=== PATIENT | female | born 1995 | race Caucasian/White ===

== ENCOUNTER 2021-05-13 06:57 | Day surgery (SDC) | payer BC ==
[~2021-05-13 06:57] MED LIST: Sensorcaine 0.25% 10 ML ONE
[2021-05-13] MEDS ORDERED: CEFAZOLIN 2 GM-D5W BAG** 2 GM/50 ML ML IV SCH (07:00)
[2021-05-13] MEDS ORDERED: Lactated Ringers 1,000 ML IV SCH (07:00)
[2021-05-13] MEDS ORDERED: Lactated Ringers 1,000 ML IV ONE (07:12)
[2021-05-13] MEDS ORDERED: CEFAZOLIN 2 GM-D5W BAG** 2 GM/50 ML ML IV ONE (07:12)
[2021-05-13] MEDS ORDERED: DIPRIVAN 200 MG/20 ML IV ONE (12:17)
[2021-05-13] MEDS ORDERED: Zofran 4 MG/2 ML VIAL ONE (12:17)
[2021-05-13] MEDS ORDERED: Zemuron 100 MG/10 ML ONE (12:17)
[2021-05-13] MEDS ORDERED: Versed 2 MG/2 ML Injection ONE (12:17)
[2021-05-13] MEDS ORDERED: TORAdol 30 mg Injection ONE (12:17)
[2021-05-13] MEDS ORDERED: BRIDION 200MG/2ML IV ONE (12:17)
[2021-05-13] MEDS ORDERED: Xylocaine-Mpf 2% 5 Ml Vial ONE (12:17)
[2021-05-13] MEDS ORDERED: Decadron 4 MG INJ ONE (12:17)
[2021-05-13] MEDS ORDERED: SUBLIMAZE 100 MCG/2 ML ONE (12:17)
[2021-05-13] MEDS ORDERED: Ephedrine Sulfate 50 MG/ML ONE (13:21)
[2021-05-13 14:31] LABS: Appearance CLEAR (CLEAR); Bilirubin NEGATIVE (NEGATIVE); Blood NEGATIVE Ery/ul (0-5); Glucose NEGATIVE (NEGATIVE); Ketones NEGATIVE (NEGATIVE); Leukocyte Esterase NEGATIVE (NEGATIVE); Mucus SLIGHT /HPF (NEGATIVE); Nitrite NEGATIVE (NEGATIVE); Protein,Urine Dip NEGATIVE (Negative); Specific Gravity 1.025 (1.005-1.025); Urobilinogen NEGATIVE mg/dL (0-1)
[2021-05-13 14:52] VITALS: O2SAT 98
[2021-05-13 14:59] VITALS: BP 139/76; PULSE 83
--- NOTE | 2021-05-14 09:39 | OP ---
SURGERY DATE/TIME: 05/13/2021 1300 PREOPERATIVE DIAGNOSIS: Dyspareunia. POSTOPERATIVE DIAGNOSIS: Dyspareunia. PROCEDURE: Diagnostic laparoscopy. SURGEON: Burak Gomez D.O. STATISTICAL METHODS TEACHER: Amanda Yang surgical coordinator. ANESTHESIA: General. ESTIMATED BLOOD LOSS: Minimal. COMPLICATIONS: None. INDICATIONS: The risks, benefits, indications and alternatives of the procedure were reviewed with the patient prior to procedure. The patient understood the risk of infection, bleeding, bowel injury, bladder injury, ureteral injury, uterine perforation, pelvic infection and thromboembolic disorder associated with the surgery however desires to have this surgery as a possible need to alleviate her current medical condition. DESCRIPTION OF PROCEDURE AND FINDINGS: At this point the patient is taken to the operating room, given general sedation, placed in the supine position where she was prepped and draped in usual sterile fashion. From this point a 5 mm skin incision was made in the umbilical fold. The 5 mm trocar and sleeve were advanced under direct visualization where pneumoperitoneum was obtained with 4 liters of CO2 gas. An additional incision was made 2 cm above the symphysis pubis where a 5 mm trocar and sleeve were advanced direct visualization. A survey of the patient's pelvis and abdomen revealed completely entirely normal anatomy. The bilateral ovaries appeared to be within normal limits with no gross endometriotic lesions that were noted. The uterus appeared to be smooth and the bilateral fallopian tubes appeared to be within normal limits with no scarring that was noted in the pelvic region. The posterior cul-de-sac appeared to be within normal limits with no endometriotic implants that were visualized. The side blackburn appeared to be within normal limits with no gross abnormalities that were noted. There is no scarring in the abdominal region and at this point no visualization of the uterus was noted during the procedure. The uterus appeared to be mobile and there did not appear to be any cysts on bilateral ovaries. From this point all instruments were removed from the patient's abdominal region. The incisions were closed with 4-0 Monocryl suture with subsequent Dermabond on top. The patient was taken out of anesthesia and then taken to the recovery room in stable condition. All instruments and laps were accounted for x2.
== END 2021-05-13 15:10 | disposition home or self-care (01) ==
LOC: SDC 06:57
PROVIDERS: ATTEND Obstetrics & Gynecology
DX: N94.10 Unspecified dyspareunia (principal)
CPT/HCPCS: 81001; 84703; 87086; J0690; J1100; J1885; J2250; J2405; J2704; J3010

== ENCOUNTER 2023-02-21 23:36 | Emergency (ER) | payer BC ==
[2023-02-22] MEDS ORDERED: Hydromorphone 1 mg/ml Injection IM ONE (00:03)
[2023-02-22] MEDS ORDERED: Compazine 10 MG/2 ML IM ONE (00:11)
--- NOTE | 2023-02-22 00:11 | ERPHSYRPT ---
- History of Present Illness Time Seen by Provider: 02/21/23 23:58 Source: patient Exam Limitations: no limitations Patient Subjective Stated Complaint: Pt states "I have a messed up tooth and it hurts so bad" states that this right lower tooth has been hurting for "a long time" and the pain is constant ache and has been evaluated by DDS twice and is scheduled for a root canal on 02/24. Triage Nursing Assessment: Pt ambulated independently to room 6 with slow steady gait after standing on scale for weight acquisition. Resp even and unlabored, she is alert and oriented times three, and able to speak in complete sentences. She is crying and holding the right side of her face and rocking back and forth in the bed. Physician History: She has been seeing a dentist for dental problem, has been on abx and has some tylenol #3, claims that still not getting good enough pain control to sleep. Says a root canal is planned. Wants a pain shot tonight (Wednesday). Timing/Duration: gradual onset, weeks (2) Severity: moderate ENT Location: dental Prearrival Treatment: prescription meds Modifying Factors: Improves With: other Associated Symptoms: tooth pain Allergies/Adverse Reactions: No Known Drug Allergies Allergy (Verified 05/13/21 07:05) Home Medications: Escitalopram Oxalate [Lexapro] 1 tab PO DAILY 05/06/21 [History] Phentermine HCl 37.5 mg PO DAILY 02/21/23 [History] Hx Tetanus, Diphtheria Vaccination/Date Given: No Hx Influenza Vaccination/Date Given: Yes Hx Pneumococcal Vaccination/Date Given: No Immunizations Up to Date: No Travel Risk - International Travel Have you traveled outside of the country in past 3 weeks: No - Coronavirus Screening Are you exhibiting any of the following symptoms?: No Close contact with a COVID-19 positive Pt in past 14-21 Days: No - Vaccine Status Have you recieved a Covid-19 vaccination: Yes Dairy Cattle Farm Manager: [employer] - Vaccination Dates Date of 2cond Vaccination (if applicable): 2020 - Review of Systems Constitutional: No Symptoms Eyes: No Symptoms Ears, Nose, & Throat: No Symptoms Respiratory: No Symptoms Cardiac: No Symptoms Abdominal/Gastrointestinal: No Symptoms Genitourinary Symptoms: No Symptoms Musculoskeletal: No Symptoms Skin: No Symptoms Neurological: No Symptoms Psychological: No Symptoms Endocrine: No Symptoms Hematologic/Lymphatic: No Symptoms Immunological/Allergic: No Symptoms All Other Systems: Reviewed and Negative - Past Medical History Pertinent Past Medical History: Yes Neurological History: No Pertinent History ENT History: No Pertinent History Cardiac History: No Pertinent History Respiratory History: No Pertinent History Endocrine Medical History: No Pertinent History Musculoskeletal History: No Pertinent History, Other GI Medical History: No Pertinent History History: Other Psycho-Social History: Depression Female Reproductive Disorders: Endometriosis, Other Other Medical History: UTI, kidney stones PCOS - Past Surgical History Past Surgical History: Yes Neuro Surgical History: No Pertinent History Cardiac: No Pertinent History Respiratory: No Pertinent History Gastrointestinal: No Pertinent History Genitourinary: Kidney Surgery Musculoskeletal: No Pertinent History Female Surgical History: No Pertinent History Other Surgical History: right ankle screws and plate, TONSILS, - Social History Smoking Status: Current every day smoker Exposure to second hand smoke: No Drug Use: none Patient Lives Alone: Yes - Female History Hx Last Menstrual Period: unknown Hx Now: No - Nursing Vital Signs Nursing Vital Signs: Initial Vital Signs Temperature 97.2 F 02/21/23 23:43 Pulse Rate 86 02/21/23 23:43 Respiratory Rate 18 02/21/23 23:43 Blood Pressure 149/114 02/21/23 23:43 O2 Sat by Pulse Oximetry 98 02/21/23 23:43 Pain Scale Pain Intensity 10 - Physical Exam General Appearance: moderate distress, alert Eye Exam: bilateral eye: normal inspection, PERRL Nasal Exam: normal inspection Throat Exam: normal, pharynx normal, dental tenderness (right lower premolar with decay and pain, no abscess) Neck Exam: normal inspection, non-tender Cardiovascular/Respiratory Exam: chest non-tender, normal breath sounds, regular rate/rhythm Abdominal Exam: non-tender Neurologic Exam: alert, oriented x 3, cooperative Skin Exam: normal color, warm SpO2: 98 - Course Nursing assessment & vital signs reviewed: Yes Ordered Tests: Medication Summary Discontinued Medications Generic Name Dose Route Start Last Admin Trade Name Freq PRN Reason Stop Dose Admin Hydromorphone HCl 1 mg 02/22/23 00:03 02/22/23 00:16 Hydromorphone 1 Mg/1ml Inj 1 Mg/Ml Syringe IM 02/22/23 00:04 1 mg STAT ONE Administration Hydromorphone HCl Confirm 02/22/23 00:12 Hydromorphone 1 Mg/1ml Inj 1 Mg/Ml Syringe Administered 02/22/23 00:13 Dose 1 mg .ROUTE .STK-MED ONE Prochlorperazine Edisylate 10 mg 02/22/23 00:11 02/22/23 00:16 Prochlorperazine Edisylate 10 Mg/2 Ml Vial IM 02/22/23 00:12 10 mg STAT ONE Administration Prochlorperazine Edisylate Confirm 02/22/23 00:12 Prochlorperazine Edisylate 10 Mg/2 Ml Vial Administered 02/22/23 00:13 Dose 10 mg .ROUTE .STK-MED ONE - Progress Progress: improved, pain not gone completely Progress Note: 02/22/23 00:29 Gave a pain shot. Advised see dentist tomorrow (Wednesday) for recheck. Counseled pt/family regarding: diagnosis, need for follow-up Medical Desision Making - Independent Historian Additional History obtained from: Mother - Discussion of managment Agreed on:: Treatment plan, need for follow-up - Departure Departure Disposition: Home Clinical Impression: Pain due to dental caries Condition: Stable Critical Care Time: No Referrals: SANA GALVIN NP [Primary Care Provider] - Follow up/PCP as directed Instructions: Dental Pain (DC) Additional Instructions: See your dentist for follow-up.
[2023-02-22] MEDS ORDERED: Hydromorphone 1 mg/ml Injection ONE (00:12)
[2023-02-22] MEDS ORDERED: Compazine 10 MG/2 ML ONE (00:12)
[2023-02-22 00:39] VITALS: BP 137/96; PULSE 63; O2SAT 96
== END 2023-02-22 00:56 | disposition home or self-care (01) ==
LOC: ED 23:36
DX: K02.9 Dental caries, unspecified (principal); K08.89 Other specified disorders of teeth and supporting structures; Z79.899 Other long term (current) drug therapy; Z72.0 Tobacco use
CPT/HCPCS: 96372; 99283; J1170

== ENCOUNTER 2024-04-12 08:49 | Emergency (ER) | payer BC ==
--- NOTE | 2024-04-12 08:53 | ERPHSYRPT ---
- History of Present Illness Time Seen by Provider: 04/12/24 08:53 Source: patient Exam Limitations: no limitations Physician History: This is a 28-year-old white female patient of nurse practitioner Caryn who presents on her own to the emergency department after she was driving to work this morning when she started noticing a little dizziness followed by vomiting and diarrhea episode. She has right upper quadrant and right lower quadrant abdominal pain. Patient started her last menstrual period yesterday. Patient denies chest pain. Patient denies shortness of breath. Patient was driving her vehicle when this occurred and therefore she pulled over and waited for the episode to subside. She stated that this happened in the distant past 1 other time. She never sought medical care for it. Patient takes no medications chronically and she has no known drug allergies. Patient has not had an abdominal surgery in the past. Timing/Duration: today Severity: mild Modifying Factors: Improves With: nothing Associated Symptoms: nausea, vomiting, abdominal pain, No shortness of breath, No chest pain, No syncope Allergies/Adverse Reactions: No Known Drug Allergies Allergy (Verified 04/12/24 08:56) Hx Tetanus, Diphtheria Vaccination/Date Given: No Hx Influenza Vaccination/Date Given: Yes Hx Pneumococcal Vaccination/Date Given: No Travel Risk - International Travel Have you traveled outside of the country in past 3 weeks: No - Emerging Infectious Disease Are you exhibiting symptoms associated with any current EIDs: No - Review of Systems Constitutional: No Symptoms Eyes: No Symptoms Ears, Nose, & Throat: No Symptoms Respiratory: No Symptoms Cardiac: No Symptoms Abdominal/Gastrointestinal: Abdominal Pain, Nausea, Vomiting, Diarrhea, No Constipation Genitourinary Symptoms: No Symptoms Musculoskeletal: No Symptoms Skin: No Symptoms Neurological: Dizziness Psychological: No Symptoms Endocrine: No Symptoms Hematologic/Lymphatic: No Symptoms Immunological/Allergic: No Symptoms All Other Systems: Reviewed and Negative - Past Medical History Pertinent Past Medical History: Yes Neurological History: No Pertinent History ENT History: No Pertinent History Cardiac History: No Pertinent History Respiratory History: No Pertinent History Endocrine Medical History: No Pertinent History Musculoskeletal History: No Pertinent History, Other GI Medical History: No Pertinent History History: Other Psycho-Social History: Depression Female Reproductive Disorders: Endometriosis, Other Other Medical History: UTI, kidney stones PCOS - Past Surgical History Past Surgical History: Yes Neuro Surgical History: No Pertinent History Cardiac: No Pertinent History Respiratory: No Pertinent History Gastrointestinal: No Pertinent History Genitourinary: Kidney Surgery Musculoskeletal: No Pertinent History Female Surgical History: No Pertinent History Other Surgical History: right ankle screws and plate, TONSILS, - Social History Smoking Status: Current every day smoker Exposure to second hand smoke: No Drug Use: none Patient Lives Alone: Yes - Nursing Vital Signs Nursing Vital Signs: Initial Vital Signs Temperature 97.9 F 04/12/24 08:56 Pulse Rate 92 H 04/12/24 08:56 Respiratory Rate 16 04/12/24 08:56 Blood Pressure 150/93 04/12/24 08:56 O2 Sat by Pulse Oximetry 98 04/12/24 08:56 Pain Scale Pain Intensity 3 - Physical Exam General Appearance: no apparent distress, alert, anxiety Eye Exam: PERRL/EOMI, eyes nml inspection Ears, Nose, Throat Exam: normal ENT inspection, moist mucous membranes Neck Exam: normal inspection, non-tender, supple, full range of motion Respiratory Exam: normal breath sounds, lungs clear, airway intact, No chest tenderness, No respiratory distress Cardiovascular Exam: regular rate/rhythm, normal heart sounds, normal peripheral pulses Gastrointestinal/Abdomen Exam: soft, normal bowel sounds, tenderness Pelvic Exam: not done Rectal Exam: not done Back Exam: normal inspection, normal range of motion, No CVA tenderness, No vertebral tenderness Extremity Exam: normal inspection, normal range of motion, pelvis stable Neurologic Exam: alert, oriented x 3, cooperative, 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, normal mood/affect, nml cerebellar function, nml station & gait, sensation nml Skin Exam: normal color, warm, dry Lymphatic Exam: No adenopathy SpO2 Interpretation: normal O2 Delivery: Room Air - Course Nursing assessment & vital signs reviewed: Yes EKG Interpreted by Me: RATE (88), Sinus Rhythm, NORMAL AXIS, NORMAL INTERVALS, NORMAL QRS, NORMAL ST-T, Other (No acute ischemia on today's twelve-lead EKG) Ordered Tests: Active Orders 24 hr Category Date Time Status EKG-ER Only STAT Care 04/12/24 09:11 Active IV Insertion STAT Care 04/12/24 09:11 Active ABDOMEN AND PELVIS W/0 CONTRAS [CT] Stat Exams 04/12/24 09:12 Completed AMYLASE Stat Lab 04/12/24 09:30 Completed CBC W DIFF Stat Lab 04/12/24 09:30 Completed CMP Stat Lab 04/12/24 09:30 Completed CULTURE,URINE Stat Lab 04/12/24 09:30 Received HCG QUALITATIVE, SERUM Stat Lab 04/12/24 09:30 Completed LIPASE Stat Lab 04/12/24 09:30 Completed TROPONIN Q4H Lab 04/12/24 09:30 Completed TROPONIN Q4H Lab 04/12/24 13:15 Ordered TROPONIN Q4H Lab 04/12/24 17:15 Ordered UA W/RFX UR CULTURE Stat Lab 04/12/24 09:30 Completed Urine Triage Profile Stat Lab 04/12/24 09:30 Completed Medication Summary Generic Name Dose Route Start Last Admin Trade Name Freq PRN Reason Stop Dose Admin Ceftriaxone Sodium 1 gm in 100 mls @ 200 mls/hr 04/12/24 10:53 Rocephin 1 Gm / 100 Ml Nacl IV 04/12/24 11:22 STAT ONE Discontinued Medications Generic Name Dose Route Start Last Admin Trade Name Freq PRN Reason Stop Dose Admin Sodium Chloride 1,000 mls @ 999 mls/hr 04/12/24 09:11 04/12/24 10:45 Sodium Chloride 0.9% 1000 Ml IV 04/12/24 10:11 Infused .Q1H1M STA Infusion Sodium Chloride Confirm 04/12/24 09:32 Sodium Chloride 0.9% 1000 Ml Administered 04/12/24 09:33 Dose 1,000 mls @ ud .ROUTE .STK-MED ONE Ondansetron HCl 4 mg 04/12/24 09:11 04/12/24 09:33 Ondansetron Hcl 4 Mg/2 Ml Vial IV 04/12/24 09:12 4 mg STAT ONE Administration Ondansetron HCl Confirm 04/12/24 09:32 Ondansetron Hcl 4 Mg/2 Ml Vial Administered 04/12/24 09:33 Dose 4 mg .ROUTE .STK-MED ONE Lab/Rad Data: Laboratory Result Diagrams 04/12/24 09:30 04/12/24 09:30 Laboratory Results 04/12/24 04/12/24 04/12/24 Range/Units 09:30 09:30 09:30 WBC (4.0-10.5) x10^3/uL RBC (4.1-5.4) x10^6/uL Hgb (12.0-16.0) g/dL Hct (35-47) % MCV (78-100) fL MCH (26-32) pg MCHC (32-36) g/dL RDW (11.5-14.0) % Plt Count (150-450) x10^3/uL MPV (7.5-11.0) fL Gran % (36.0-66.0) % Immature Gran % (Auto) (0.00-0.4) % Nucleat RBC Rel Count (0.00-0.1) % Eos # (Auto) (0-0.5) x10^3/uL Immature Gran # (Auto) (0.00-0.03) x10^3u/L Absolute Lymphs (auto) (1.0-4.6) x10^3/uL Absolute Monos (auto) (0.0-1.3) x10^3/uL Absolute Nucleated RBC (0.00-0.01) x10^3u/L Lymphocytes % (24.0-44.0) % Monocytes % (0.0-12.0) % Eosinophils % (0.00-5.0) % Basophils % (0.0-0.4) % Absolute Granulocytes (1.4-6.9) x10^3/uL Basophils # (0-0.4) x10^3/uL Sodium (135-145) mmol/L Potassium (3.5-5.1) mmol/L Chloride (98-107) mmol/L Carbon Dioxide (22-30) mmol/L Anion Gap (5-15) MEQ/L BUN (7-17) mg/dL Creatinine (0.52-1.04) mg/dL Estimated GFR ML/MIN Glucose (74-106) mg/dL Calcium (8.4-10.2) mg/dL Total Bilirubin (0.2-1.3) mg/dL AST (14-36) U/L ALT (0-35) U/L Alkaline Phosphatase (38-126) U/L Troponin I < 0.012 (0.000-0.033) ng/mL Serum Total Protein (6.3-8.2) g/dL Albumin (3.5-5.0) g/dL Amylase (30-110) U/L Lipase (23-300) U/L Serum HCG, Qual NEGATIVE (NEGATIVE) Urine Color (Yellow) Urine Appearance (Clear) Urine pH (4.6-8.0) Ur Specific [place] (1.005-1.030) Urine Protein (Negative) Urine Glucose (UA) (Negative) mg/dL Urine Ketones (Negative) Urine Blood (Negative) Urine Nitrite (Negative) Urine Bilirubin (Negative) Urine Urobilinogen (0.2) mg/dL Ur Leukocyte Esterase (Negative) U Hyaline Cast (Auto) (0-2) /LPF Urine Microscopic RBC (0-5) /HPF Urine Microscopic WBC (0-5) /HPF Ur Epithelial Cells (None Seen) /HPF Calcium Oxalate Crystal (None Seen) /HPF Urine Bacteria (None Seen) /HPF Urine Culture Reflexed (NO) Urine Opiates Level NEGATIVE (NEGATIVE) Ur Methadone NEGATIVE (NEGATIVE) Urine Barbiturates NEGATIVE (NEGATIVE) Ur Phencyclidine (PCP) NEGATIVE (NEGATIVE) Urine Amphetamine NEGATIVE (NEGATIVE) U Benzodiazepine Level NEGATIVE (NEGATIVE) Urine Cocaine NEGATIVE (NEGATIVE) Urine Marijuana (THC) NEGATIVE (NEGATIVE) 04/12/24 04/12/24 04/12/24 Range/Units 09:30 09:30 09:30 WBC 19.6 H (4.0-10.5) x10^3/uL RBC 5.60 H (4.1-5.4) x10^6/uL Hgb 16.4 H (12.0-16.0) g/dL Hct 48.1 H (35-47) % MCV 85.9 (78-100) fL MCH 29.3 (26-32) pg MCHC 34.1 (32-36) g/dL RDW 11.9 (11.5-14.0) % Plt Count 348 (150-450) x10^3/uL MPV 9.1 (7.5-11.0) fL Gran % 84.4 H (36.0-66.0) % Immature Gran % (Auto) 0.4 (0.00-0.4) % Nucleat RBC Rel Count 0.0 (0.00-0.1) % Eos # (Auto) 0.07 (0-0.5) x10^3/uL Immature Gran # (Auto) 0.08 H (0.00-0.03) x10^3u/L Absolute Lymphs (auto) 1.79 (1.0-4.6) x10^3/uL Absolute Monos (auto) 1.05 (0.0-1.3) x10^3/uL Absolute Nucleated RBC 0.00 (0.00-0.01) x10^3u/L Lymphocytes % 9.1 L (24.0-44.0) % Monocytes % 5.4 (0.0-12.0) % Eosinophils % 0.4 (0.00-5.0) % Basophils % 0.3 (0.0-0.4) % Absolute Granulocytes 16.57 H (1.4-6.9) x10^3/uL Basophils # 0.05 (0-0.4) x10^3/uL Sodium 139 (135-145) mmol/L Potassium 3.8 (3.5-5.1) mmol/L Chloride 108 H (98-107) mmol/L Carbon Dioxide 22 (22-30) mmol/L Anion Gap 12.7 (5-15) MEQ/L BUN 10 (7-17) mg/dL Creatinine 0.64 (0.52-1.04) mg/dL Estimated GFR 122.6 ML/MIN Glucose 106 (74-106) mg/dL Calcium 9.5 (8.4-10.2) mg/dL Total Bilirubin 0.50 (0.2-1.3) mg/dL AST 28 (14-36) U/L ALT 32 (0-35) U/L Alkaline Phosphatase 54 (38-126) U/L Troponin I (0.000-0.033) ng/mL Serum Total Protein 7.8 (6.3-8.2) g/dL Albumin 4.4 (3.5-5.0) g/dL Amylase 66 (30-110) U/L Lipase 37 (23-300) U/L Serum HCG, Qual (NEGATIVE) Urine Color Dark Yellow A (Yellow) Urine Appearance Cloudy A (Clear) Urine pH 5.5 (4.6-8.0) Ur Specific [place] >=1.030 A (1.005-1.030) Urine Protein 30 (Negative) Urine Glucose (UA) Negative (Negative) mg/dL Urine Ketones Negative (Negative) Urine Blood Moderate A (Negative) Urine Nitrite Negative (Negative) Urine Bilirubin Small A (Negative) Urine Urobilinogen 1.0 A (0.2) mg/dL Ur Leukocyte Esterase Negative (Negative) U Hyaline Cast (Auto) >50 A (0-2) /LPF Urine Microscopic RBC 11-20 A (0-5) /HPF Urine Microscopic WBC 6-10 A (0-5) /HPF Ur Epithelial Cells Few (None Seen) /HPF Calcium Oxalate Crystal 3-5 A (None Seen) /HPF Urine Bacteria None Seen (None Seen) /HPF Urine Culture Reflexed YES (NO) Urine Opiates Level (NEGATIVE) Ur Methadone (NEGATIVE) Urine Barbiturates (NEGATIVE) Ur Phencyclidine (PCP) (NEGATIVE) Urine Amphetamine (NEGATIVE) U Benzodiazepine Level (NEGATIVE) Urine Cocaine (NEGATIVE) Urine Marijuana (THC) (NEGATIVE) - Progress Progress: improved, re-examined Progress Note: 04/12/24 09:34 My medical decision making and the assignment of moderate complexity to this patient's medical issue today is based on review of the patient's past medical history, review the patient's medication list, review of patient drug allergy list, history present illness and physical findings on examination. The workup in this patient include placement of intravenous line, twelve-lead EKG, troponin level, amylase, lipase, urinalysis, urine drug screen, CBC, CMP, CT scan of the abdomen and pelvis without contrast. Differential diagnosis includes urinary tract infection, dehydration, electrolyte abnormalities, acute intra-abdominal/intrapelvic abnormality. 04/12/24 10:56 I interpreted the patient's laboratory data results. The patient has a significant leukocytosis with a left shift. She also has a significant urinary tract infection. The CT scan of the abdomen pelvis was interpreted by the radiologist and I reviewed the impression. The impression states normal appendicitis. Tiny amount of fluid in the cul-de-sac presumed physiologic from a ruptured ovarian cyst. In addition there were small bowel loops that demonstrate mild circumferential wall thickening and minimal stranding favoring enteritis. Counseled pt/family regarding: lab results, diagnosis, need for follow-up, rad results Medical Desision Making - Independent Historian Additional History obtained from: Family - Diagnostic Testing Diagnostic test were ordered, analyzed, and reviewed by me: Yes Radiological Interpretation: Reviewed by me, Teleradiologist Report - Risk of complications The pt has a mod risk of morbidity or mortality based on: Need for prescription drug management - Departure Departure Disposition: Home Clinical Impression: Leukocytosis, UTI (urinary tract infection), Enteritis Condition: Stable Critical Care Time: No Referrals: SANA GALVIN, AGRICULTURAL ENGINEERING TECHNICIAN [Primary Care Provider] - Follow up/PCP as directed Additional Instructions: Start off with clear liquid diet. Slowly advance your diet over the next 24 hours. Avoid fatty greasy spicy foods. Take your antibiotics and other medications as prescribed. Call your primary care provider today, 04/12/2024, to make arrangements for follow-up appointment to be seen in the next 3 to 5 days. Forms: Work/School Release Form Prescriptions: Ondansetron ODT 4 MG [Zofran Odt 4 mg] 4 mg PO Q6H PRN PRN #10 tablet PRN Reason: Vomiting Ciprofloxacin [Cipro 500 MG] 500 mg PO BID #14 tablet Metronidazole 500 mg [Flagyl 500 MG] 500 mg PO TID #21 tablet
[2024-04-12 09:09] VITALS: TEMP 97.9
[2024-04-12] MEDS ORDERED: Zofran 4 MG/2 ML VIAL ONE (09:32)
[2024-04-12] MEDS ORDERED: Sodium Chloride 0.9% 1000 ML 1,000 ML ONE (09:32)
[2024-04-12] MEDS: Sodium Chloride 0.9% 1000 ML 1,000 ML IV STA (09:33)
[2024-04-12] MEDS: Zofran 4 MG/2 ML VIAL IV ONE (09:33)
[2024-04-12 09:40] LABS: Absolute Neutrophil Ct (ANC) 16.57 x10^3/uL (1.4-6.9); BASOPHIL % 0.3 % (0.0-0.4); Basophil (Absolute #) 0.05 x10^3/uL (0-0.4); Eosinophil % 0.4 % (0.00-5.0); Eosinophil (Absolute #) 0.07 x10^3/uL (0-0.5); Hematocrit 48.1 % (35-47); Hemoglobin 16.4 g/dL (12.0-16.0); IMMATURE GRAN # 0.08 x10^3u/L (0.00-0.03); IMMATURE GRAN % 0.4 % (0.00-0.4); Lymphocyte (Absolute #) 1.79 x10^3/uL (1.0-4.6); Lymphocytes % 9.1 % (24.0-44.0); Mean Cell Volume 85.9 fL (78-100); Mean Corpuscular Hemoglobin 29.3 pg (26-32); Mean Corpuscular Hgb Concent. 34.1 g/dL (32-36); Mean Platelet Volume 9.1 fL (7.5-11.0); Monocyte (Absolute #) 1.05 x10^3/uL (0.0-1.3); Monocytes % 5.4 % (0.0-12.0); Neutrophil % 84.4 % (36.0-66.0); Platelet Count 348 x10^3/uL (150-450); Red Cell Distribution Width 11.9 % (11.5-14.0); White Blood Count 19.6 x10^3/uL (4.0-10.5)
[2024-04-12 09:53] LABS: HCG SERUM TEST NEGATIVE (NEGATIVE)
[2024-04-12 09:59] LABS: ALBUMIN 4.4 g/dL (3.5-5.0); ANION GAP 12.7 MEQ/L (5-15); BILIRUBIN,TOTAL 0.5 mg/dL (0.2-1.3); Calcium 9.5 mg/dL (8.4-10.2); Creatinine 1 0.64 mg/dL (0.52-1.04); EST GLOMERULAR FILTRATION RATE 122.6 ML/MIN; Potassium 3.8 mmol/L (3.5-5.1); Total Protein 7.8 g/dL (6.3-8.2)
[2024-04-12 10:10] LABS: Amphetamine,Urine NEGATIVE (NEGATIVE); Barbiturate,Urine NEGATIVE (NEGATIVE); Benzodiazepine,Urine NEGATIVE (NEGATIVE); Cocaine,Urine NEGATIVE (NEGATIVE); Methadone,Urine NEGATIVE (NEGATIVE); PCP,Urine NEGATIVE (NEGATIVE); THC,Urine NEGATIVE (NEGATIVE)
[2024-04-12 10:11] LABS: Appearance Cloudy (Clear); Bacteria None Seen /HPF (None Seen); Bilirubin Small (Negative); Blood Moderate (Negative); Epithelial Cells Few /HPF (None Seen); Glucose, Urine Negative (Negative); Hyaline Casts >50 /LPF (0-2); Ketones Negative (Negative); Leukocyte Esterase Negative (Negative); Nitrite Negative (Negative); Ph 5.5 (4.6-8.0); Protein,Urine Dip 30 (Negative); Specific Gravity >=1.030 (1.005-1.030)
[2024-04-12 10:12] LABS: ADD URINE CULTURE? YES (NO)
[2024-04-12 10:13] LABS: Opiate,Urine NEGATIVE (NEGATIVE)
--- NOTE | 2024-04-12 10:36 | XRAY ---
Indication: Vomiting and diarrhea. Right abdominal pain. Multiple contiguous axial images obtained to the abdomen and pelvis without contrast. Comparison: None Lung bases demonstrates right infrahilar and right lower lobe calcified granulomas. No infiltrate or effusion. Heart not enlarged. Noncontrasted stomach and bowel loops appear nonobstructed. Small bowel loops demonstrates mild circumferential wall thickening with minimal stranding favoring enteritis. Normal appearing appendix. Tiny cul-de-sac fluid presumed physiologic from ruptured/leaking cyst. Incidental tampon in situ. A few nonobstructed bilateral renal micro-calculi, largest right lower pole measuring 8 mm. Incidental tiny splenic calcified granulomas. Remaining liver, gallbladder, pancreas, spleen, adrenal glands, kidneys, ureters, bladder, and aorta are unremarkable for noncontrast exam. Osseous structures intact. Impression: 1. CT findings as detailed favoring enteritis. 2. Tiny physiologic cul-de-sac fluid, nonobstructing bilateral renal micro-calculi, and old granulomatous disease.
[2024-04-12 11:18] VITALS: BP 135/87; PULSE 53; RESP 15; O2SAT 97
[2024-04-12] MEDS ORDERED: ROCEPHIN 1 GM / 100 ML NaCl 1 GM/100 ML IVPB IV ONE (11:18)
[2024-04-12] MEDS ORDERED: Flagyl 500 MG ONE (11:18)
[2024-04-12] MEDS: Flagyl 500 MG PO ONE (11:20)
[2024-04-12] MEDS: ROCEPHIN 1 GM / 100 ML NaCl 1 GM/100 ML IVPB IV ONE (11:20)
== END 2024-04-12 11:42 | disposition home or self-care (01) ==
LOC: ED 08:49
DX: N39.0 Urinary tract infection, site not specified (principal); K52.9 Noninfective gastroenteritis and colitis, unspecified; D72.829 Elevated white blood cell count, unspecified; R11.2 Nausea with vomiting, unspecified; R42 Dizziness and giddiness; R10.11 Right upper quadrant pain; R10.31 Right lower quadrant pain; Z72.0 Tobacco use
CPT/HCPCS: 36000; 36415; 74176; 80053; 80307; 81001; 82150; 83690; 84484; 84703; 85025; 87086; 93005; 96365; 96374; 99284; J0696; J2405; A9270-GY

== ENCOUNTER 2024-05-02 16:40 | Emergency (ER) | payer BC ==
[2024-05-02 17:12] VITALS: TEMP 97.4
[2024-05-02] MEDS ORDERED: Sodium Chloride 0.9% 1000 ML 1,000 ML ONE (18:05)
[2024-05-02] MEDS ORDERED: TORAdol 30 mg Injection ONE (18:05)
[2024-05-02] MEDS: Sodium Chloride 0.9% 1000 ML 1,000 ML IV STA (18:06)
[2024-05-02] MEDS: TORAdol 30 mg Injection IV ONE (18:07)
[2024-05-02 18:23] LABS: Appearance Cloudy (Clear); BASOPHIL % 0.3 % (0.1-1.2); Bacteria Few /HPF (None Seen); Basophil (Absolute #) 0.03 x10^3/uL (0.01-0.08); Bilirubin Negative (Negative); Blood Large (Negative); Eosinophil % 0.1 % (0.7-5.8); Eosinophil (Absolute #) 0.01 x10^3/uL (0.04-0.36); Epithelial Cells Moderate /HPF (None Seen); Glucose, Urine Negative (Negative); Hematocrit 41.8 % (34.1-44.9); Hemoglobin 14.1 g/dL (11.2-15.7); Hyaline Casts NONE SEEN /LPF (0-2); IMMATURE GRAN # 0.03 x10^3u/L (0.001-0.031); IMMATURE GRAN % 0.3 % (0.001-0.429); Ketones 15 (Negative); Leukocyte Esterase Negative (Negative); Lymphocyte (Absolute #) 1.47 x10^3/uL (1.18-3.74); Lymphocytes % 12.4 % (19.3-51.7); Mean Cell Volume 87.4 fL (79.4-94.8); Mean Corpuscular Hemoglobin 29.5 pg (25.6-32.2); Mean Corpuscular Hgb Concent. 33.7 g/dL (32.2-35.5); Monocyte (Absolute #) 0.58 x10^3/uL (0.24-0.86); Monocytes % 4.9 % (4.7-12.5); Nitrite Negative (Negative); Ph 5.5 (4.6-8.0); Platelet Count 356 x10^3/uL (182-369); Protein,Urine Dip 100 (Negative); RBC >100 /HPF (0-5); Red Blood Count 4.78 x10^6/uL (3.93-5.22); Specific Gravity 1.025 (1.005-1.030); White Blood Count 11.8 x10^3/uL (3.98-10.04)
[2024-05-02 18:24] LABS: ADD URINE CULTURE? YES (NO)
[2024-05-02 18:26] LABS: HCG URINE TEST NEGATIVE (NEGATIVE)
[2024-05-02 18:34] LABS: ALBUMIN 4.9 g/dL (3.5-5.0); ANION GAP 18.1 MEQ/L (5-15); BILIRUBIN,TOTAL 0.7 mg/dL (0.2-1.3); Calcium 9.9 mg/dL (8.4-10.2); Creatinine 1 0.66 mg/dL (0.52-1.04); EST GLOMERULAR FILTRATION RATE 121.7 ML/MIN; Potassium 4.3 mmol/L (3.5-5.1); Total Protein 8.4 g/dL (6.3-8.2)
--- NOTE | 2024-05-02 20:23 | ERPHSYRPT ---
- History of Present Illness Time Seen by Provider: 05/02/24 18:00 Historian: patient Exam Limitations: no limitations Patient Subjective Stated Complaint: Abdominal/flank pain Triage Nursing Assessment: Patient ambulated back to ED and transferred self to bed. Patient A+O X3. Patient's skin pink, warm and dry. Patient complains of right lower abdominal pain/flank pain 8/10 intermittent since this Wednesday. Patient complains of N/V. Physician History: Patient is a 28-year-old female with history of kidney stones presents to our ED for evaluation of right-sided flank pain that started approximately 2 days ago. Pain has been intermittent and progressively worsening. Pain described as an ache that tends to radiate into her groin area. No trauma no fever no nausea vomiting or diaphoresis. Symptoms are moderate to severe in intensity. No specific worsening or improving factors. Patient voices no other complaints or concerns at this time. Portions of this note were created with voice recognition technology. There may be grammatical, spelling, punctuation or sound alike errors Timing/Duration: day(s) (2 days) Activities at Onset: none Quality: aching Abdominal Pain Onset Location: flank Pain Radiation: no radiation (Pain radiates into the right groin.) Severity of Pain-Max: severe Severity of Pain-Current: moderate Modifying Factors: Improves With: nothing Associated Symptoms: denies symptoms Previous symptoms: same symptoms as today Allergies/Adverse Reactions: No Known Drug Allergies Allergy (Verified 05/02/24 17:00) Hx Tetanus, Diphtheria Vaccination/Date Given: No Hx Influenza Vaccination/Date Given: Yes Hx Pneumococcal Vaccination/Date Given: No Travel Risk - International Travel Have you traveled outside of the country in past 3 weeks: No - Emerging Infectious Disease Are you exhibiting symptoms associated with any current EIDs: No Symptoms: Abdominal Pain, Vomitting - Review of Systems Constitutional: No Symptoms, No Fever, No Chills Eyes: No Symptoms Ears, Nose, & Throat: No Symptoms Respiratory: No Symptoms, No Cough, No Dyspnea Cardiac: No Symptoms, No Chest Pain, No Edema, No Syncope Abdominal/Gastrointestinal: No Symptoms, No Abdominal Pain, No Nausea, No Vomiting, No Diarrhea Genitourinary Symptoms: No Symptoms, No Dysuria Musculoskeletal: No Symptoms, No Back Pain, No Neck Pain Skin: No Symptoms, No Rash Neurological: No Symptoms, No Dizziness, No Focal Weakness, No Sensory Changes Psychological: No Symptoms Endocrine: No Symptoms Hematologic/Lymphatic: No Symptoms Immunological/Allergic: No Symptoms All Other Systems: Reviewed and Negative - Past Medical History Pertinent Past Medical History: Yes Neurological History: No Pertinent History ENT History: No Pertinent History Cardiac History: No Pertinent History Respiratory History: No Pertinent History Endocrine Medical History: No Pertinent History Musculoskeletal History: No Pertinent History, Other GI Medical History: No Pertinent History History: Other Psycho-Social History: Depression Female Reproductive Disorders: Endometriosis, Other Other Medical History: UTI, kidney stones PCOS - Past Surgical History Past Surgical History: Yes Neuro Surgical History: No Pertinent History Cardiac: No Pertinent History Respiratory: No Pertinent History Gastrointestinal: No Pertinent History Genitourinary: Kidney Surgery Musculoskeletal: No Pertinent History Female Surgical History: No Pertinent History Other Surgical History: right ankle screws and plate, TONSILS, - Female History Hx Now: No - Social History Smoking Status: Current every day smoker Exposure to second hand smoke: No Drug Use: none Patient Lives Alone: Yes - Social Determinants of Health Will the patient participate in the screening: Yes Do you worry about a steady place to live?: No Do you have any problems with any of the following?: No known problems In the past 12 months,have you had to go without utilities?: No Transportation Issues: No Has anyone in your support network made you feel unsafe?: No Have you or anyone in your house had to go without enough: No - Nursing Vital Signs Nursing Vital Signs: Initial Vital Signs Temperature 97.4 F 05/02/24 17:05 Pulse Rate 62 05/02/24 17:05 Respiratory Rate 18 05/02/24 17:05 Blood Pressure 117/65 05/02/24 17:05 O2 Sat by Pulse Oximetry 98 05/02/24 17:05 Pain Scale Pain Intensity 8 - Physical Exam General Appearance: no apparent distress, alert Eye Exam: PERRL/EOMI, eyes nml inspection Ears, Nose, Throat Exam: normal ENT inspection, pharynx normal, moist mucous m embranes Neck Exam: normal inspection, non-tender, supple, full range of motion Respiratory Exam: normal breath sounds, lungs clear, airway intact, No respiratory distress Cardiovascular Exam: regular rate/rhythm, normal heart sounds, normal peripheral pulses Gastrointestinal/Abdomen Exam: soft, tenderness (Right flank tenderness to palpation), No mass Back Exam: normal inspection, normal range of motion, No CVA tenderness, No vertebral tenderness Extremity Exam: normal inspection, normal range of motion, pelvis stable Neurologic Exam: alert, oriented x 3, cooperative, normal mood/affect, sensation nml, No motor deficits Skin Exam: normal color, warm, dry Lymphatic Exam: No adenopathy SpO2 Interpretation: normal SpO2: 99 O2 Delivery: Room Air - Course Nursing assessment & vital signs reviewed: Yes - CT Exams Abdomen/Pelvis CT Interpretation: Tele-radiologist Report (Compared to 04/12/2024 new 8 to 9 mm stone proximal right ureter at L3 with mild right renal edema and mild hydronephrosis. Again a few bilateral renal micro calculi) Ordered Tests: Active Orders 24 hr Category Date Time Status IV Insertion STAT Care 05/02/24 17:51 Active ABDOMEN AND PELVIS W/0 CONTRAS [CT] Stat Exams 05/02/24 17:51 Taken CBC W DIFF Stat Lab 05/02/24 17:56 Completed CMP Stat Lab 05/02/24 17:56 Completed CULTURE,URINE Stat Lab 05/02/24 17:56 Received HCG QUALITATIVE, URINE Stat Lab 05/02/24 17:56 Completed TROPONIN Q4H Lab 05/02/24 17:56 Completed TROPONIN Q4H Lab 05/03/24 02:00 Ordered UA W/RFX UR CULTURE Stat Lab 05/02/24 17:56 Completed Medication Summary Discontinued Medications Generic Name Dose Route Start Last Admin Trade Name Freq PRN Reason Stop Dose Admin Sodium Chloride 1,000 mls @ 999 mls/hr 05/02/24 17:51 05/02/24 19:08 Sodium Chloride 0.9% 1000 Ml IV 05/02/24 18:51 Infused .Q1H1M STA Infusion Sodium Chloride Confirm 05/02/24 18:05 Sodium Chloride 0.9% 1000 Ml Administered 05/02/24 18:06 Dose 1,000 mls @ ud .ROUTE .STK-MED ONE Ceftriaxone Sodium 1 gm in 100 mls @ 200 mls/hr 05/02/24 20:23 05/02/24 21:04 Rocephin 1 Gm / 100 Ml Nacl IV 05/02/24 20:52 Infused STAT ONE Infusion Ceftriaxone Sodium Confirm 05/02/24 20:31 Rocephin 1 Gm / 100 Ml Nacl Administered 05/02/24 20:32 Dose 1 gm in 100 mls @ ud IV .STK-MED ONE Ketorolac Tromethamine 30 mg 05/02/24 17:51 05/02/24 18:07 Ketorolac Tromethamine 30 Mg/Ml Inj IV 05/02/24 17:52 30 mg STAT ONE Administration Ketorolac Tromethamine Confirm 05/02/24 18:05 Ketorolac Tromethamine 30 Mg/Ml Inj Administered 05/02/24 18:06 Dose 30 mg .ROUTE .STK-MED ONE Morphine Sulfate 4 mg 05/02/24 20:37 05/02/24 21:32 Morphine Sulfate 4 Mg/Ml Injection IV 05/02/24 20:38 4 mg STAT ONE Administration Morphine Sulfate Confirm 05/02/24 21:31 Morphine Sulfate 4 Mg/Ml Injection Administered 05/02/24 21:32 Dose 4 mg .ROUTE .STK-MED ONE Lab/Rad Data: Laboratory Result Diagrams 05/02/24 17:56 05/02/24 17:56 Laboratory Results 05/02/24 05/02/24 05/02/24 Range/Units 17:56 17:56 17:56 WBC (3.98-10.04) x10^3/uL RBC (3.93-5.22) x10^6/uL Hgb (11.2-15.7) g/dL Hct (34.1-44.9) % MCV (79.4-94.8) fL MCH (25.6-32.2) pg MCHC (32.2-35.5) g/dL RDW (11.7-14.4) % Plt Count (182-369) x10^3/uL MPV (9.4-12.3) fL Gran % (34.0-71.1) % Immature Gran % (Auto) (0.001-0.429) % Nucleat RBC Rel Count (0.00-0.2) % Eos # (Auto) (0.04-0.36) x10^3/uL Immature Gran # (Auto) (0.001-0.031) x10^3u/L Absolute Lymphs (auto) (1.18-3.74) x10^3/uL Absolute Monos (auto) (0.24-0.86) x10^3/uL Absolute Nucleated RBC (0.00-0.012) x10^3u/L Lymphocytes % (19.3-51.7) % Monocytes % (4.7-12.5) % Eosinophils % (0.7-5.8) % Basophils % (0.1-1.2) % Absolute Granulocytes (1.56-6.13) x10^3/uL Basophils # (0.01-0.08) x10^3/uL Sodium 139 (135-145) mmol/L Potassium 4.3 (3.5-5.1) mmol/L Chloride 105 (98-107) mmol/L Carbon Dioxide 21 L (22-30) mmol/L Anion Gap 18.1 H (5-15) MEQ/L BUN 8 (7-17) mg/dL Creatinine 0.66 (0.52-1.04) mg/dL Estimated GFR 121.7 ML/MIN Glucose 108 H (74-106) mg/dL Calcium 9.9 (8.4-10.2) mg/dL Total Bilirubin 0.70 (0.2-1.3) mg/dL AST 30 (14-36) U/L ALT 40 H (0-35) U/L Alkaline Phosphatase 63 (38-126) U/L Troponin I < 0.012 (0.000-0.033) ng/mL Serum Total Protein 8.4 H (6.3-8.2) g/dL Albumin 4.9 (3.5-5.0) g/dL Urine Color (Yellow) Urine Appearance (Clear) Urine pH (4.6-8.0) Ur Specific [place] (1.005-1.030) Urine Protein (Negative) Urine Glucose (UA) (Negative) mg/dL Urine Ketones (Negative) Urine Blood (Negative) Urine Nitrite (Negative) Urine Bilirubin (Negative) Urine Urobilinogen (0.2) mg/dL Ur Leukocyte Esterase (Negative) U Hyaline Cast (Auto) (0-2) /LPF Urine Microscopic RBC (0-5) /HPF Urine Microscopic WBC (0-5) /HPF Ur Epithelial Cells (None Seen) /HPF Urine Bacteria (None Seen) /HPF Urine Culture Reflexed (NO) Urine HCG, Qual NEGATIVE (NEGATIVE) 05/02/24 05/02/24 Range/Units 17:56 17:56 WBC 11.8 H (3.98-10.04) x10^3/uL RBC 4.78 (3.93-5.22) x10^6/uL Hgb 14.1 (11.2-15.7) g/dL Hct 41.8 (34.1-44.9) % MCV 87.4 (79.4-94.8) fL MCH 29.5 (25.6-32.2) pg MCHC 33.7 (32.2-35.5) g/dL RDW 12.0 (11.7-14.4) % Plt Count 356 (182-369) x10^3/uL MPV 9.0 L (9.4-12.3) fL Gran % 82.0 H (34.0-71.1) % Immature Gran % (Auto) 0.3 (0.001-0.429) % Nucleat RBC Rel Count 0.0 (0.00-0.2) % Eos # (Auto) 0.01 L (0.04-0.36) x10^3/uL Immature Gran # (Auto) 0.03 (0.001-0.031) x10^3u/L Absolute Lymphs (auto) 1.47 (1.18-3.74) x10^3/uL Absolute Monos (auto) 0.58 (0.24-0.86) x10^3/uL Absolute Nucleated RBC 0.00 (0.00-0.012) x10^3u/L Lymphocytes % 12.4 L (19.3-51.7) % Monocytes % 4.9 (4.7-12.5) % Eosinophils % 0.1 L (0.7-5.8) % Basophils % 0.3 (0.1-1.2) % Absolute Granulocytes 9.70 H (1.56-6.13) x10^3/uL Basophils # 0.03 (0.01-0.08) x10^3/uL Sodium (135-145) mmol/L Potassium (3.5-5.1) mmol/L Chloride (98-107) mmol/L Carbon Dioxide (22-30) mmol/L Anion Gap (5-15) MEQ/L BUN (7-17) mg/dL Creatinine (0.52-1.04) mg/dL Estimated GFR ML/MIN Glucose (74-106) mg/dL Calcium (8.4-10.2) mg/dL Total Bilirubin (0.2-1.3) mg/dL AST (14-36) U/L ALT (0-35) U/L Alkaline Phosphatase (38-126) U/L Troponin I (0.000-0.033) ng/mL Serum Total Protein (6.3-8.2) g/dL Albumin (3.5-5.0) g/dL Urine Color Yellow (Yellow) Urine Appearance Cloudy A (Clear) Urine pH 5.5 (4.6-8.0) Ur Specific [place] 1.025 (1.005-1.030) Urine Protein 100 A (Negative) Urine Glucose (UA) Negative (Negative) mg/dL Urine Ketones 15 A (Negative) Urine Blood Large A (Negative) Urine Nitrite Negative (Negative) Urine Bilirubin Negative (Negative) Urine Urobilinogen 1.0 A (0.2) mg/dL Ur Leukocyte Esterase Negative (Negative) U Hyaline Cast (Auto) NONE SEEN (0-2) /LPF Urine Microscopic RBC >100 A (0-5) /HPF Urine Microscopic WBC 6-10 A (0-5) /HPF Ur Epithelial Cells Moderate A (None Seen) /HPF Urine Bacteria Few A (None Seen) /HPF Urine Culture Reflexed YES (NO) Urine HCG, Qual (NEGATIVE) - Progress Progress: improved Progress Note: Case discussed with from [facility]. He accepts transfer at 9:10 PM. Patient is a 28-year-old female presents to the emergency department for evaluation of right-sided flank pain. Physical exam reveals some tenderness along the right flank into the groin area. CT abdomen pelvis reveals a 8 to 9 mm proximal ureteral lithiasis. There is associated hydronephrosis and renal ed thomas. Normal kidney function. UA suggestive of urinary tract infection. Rocephin administered. Patient will require decompression of this obstructive uropathy. Patient declined transfer via ground and air. Patient prefers transfer via POV. We contacted the receiving facility and they had no objection of patient arriving via POV. Patient will be transferred via POV per her request. Vital stable. Time spent to transfer patient is approximately 15 to 20 minutes. Complexity problem addressed is moderate acute complicated. No critical care time. Complex of data reviewed and analyzed is extensive. Management discussed with neurologist who accepts transfer. Test ordered test reviewed results analyzed and correlated clinically with history and physical exam. Risk of complication and or risk of morbidity/mortality patient management is low. Vital stable. Time spent to transfer patient is approximately 30 minutes. Plan of care established for shared decision making. No social determinants of health present impede follow-up. Portions of this note were created with voice recognition technology. There may be grammatical, spelling, punctuation or sound alike errors portions of this note were created with voice recognition technology. There may be grammatical, spelling, punctuation or sound alike errors 05/02/24 21:12 05/02/24 22:32 Counseled pt/family regarding: lab results, diagnosis, rad results - Departure Departure Disposition: Transfer Clinical Impression: Ureterolithiasis, Nephrolithiasis, Hydronephrosis, Renal edema, Leukocytosis, UTI (urinary tract infection) Condition: Stable Critical Care Time: No Referrals: SANA GALVIN NP [Primary Care Provider] - Follow up/PCP as directed Additional Instructions: Discharge/Care Plan MARIA DE JESUS SCHULZ was seen on 05/02/24 in the Emergency Room. The patient was counseled regarding Diagnosis,Lab results, Imaging studies, need for follow up and when to return to the Emergency Room. Prescriptions given: Discharge Note I have spoken with the patient and/or caregivers. I have explained the patient's condition, diagnosis and treatment plan based on the information available to me at this time. I have answered the patient's and/or caregiver's questions and addressed any concerns. The patient and/or caregivers have as good understanding of the patient's diagnosis, condition and treatment plan as can be expected at this point. The vital signs have been stable. The patient's condition is stable and appropriate for discharge from the emergency department. The patient will pursue further outpatient evaluation with the primary care physician or other designated or consulting physician as outlined in the discharge instructions. The patient and/or caregivers are agreeable to this plan of care and follow-up instructions have been explained in detail. The patient and/or caregivers have received these instruction. The patient/and or caregivers are aware that any significant change in condition or worsening of symptoms should prompt an immediate return to this or the closest emergency department or call 911.
[2024-05-02] MEDS ORDERED: ROCEPHIN 1 GM / 100 ML NaCl 1 GM/100 ML IVPB IV ONE (20:31)
[2024-05-02] MEDS: ROCEPHIN 1 GM / 100 ML NaCl 1 GM/100 ML IVPB IV ONE (20:32)
[2024-05-02 21:07] VITALS: RESP 17
[2024-05-02] MEDS ORDERED: MORPHINE SULFATE 4 MG INJ ONE (21:31)
[2024-05-02] MEDS: MORPHINE SULFATE 4 MG INJ IV ONE (21:32)
[2024-05-02 22:06] VITALS: BP 99/70; PULSE 61
[2024-05-02 22:38] VITALS: O2SAT 99
--- NOTE | 2024-05-03 08:53 | XRAY ---
Indication: Pain 3-4 days. History kidney stones. Multiple contiguous axial images obtained through the abdomen and pelvis without contrast. Comparison: April 12, 2024 Lung bases clear again with incidental small right lower lobe calcified granuloma. Heart not enlarged again with subcarinal and right infrahilar calcified nodes. Noncontrasted stomach and bowel loops appear nonobstructed with normal appendix. New 8-9 mm proximal right ureter calculus, approximately L3 level. Mild right renal edema and moderate hydronephrosis favoring partial obstructive uropathy. There remains a few bilateral renal punctate calculi. No free fluid/air. Remaining liver, gallbladder, pancreas, spleen, adrenal glands, kidneys, ureters, bladder, uterus, and aorta are unremarkable for noncontrast exam. Osseous structures intact. Impression: 1. New 8-9 mm proximal right ureter calculus producing obstructive uropathy as detailed. 2. Again bilateral renal micro-calculi and old granulomatous disease.
== END 2024-05-02 23:15 | disposition short-term general hospital (02) ==
LOC: ED 16:40
DX: N13.2 Hydronephrosis with renal and ureteral calculous obstruction (principal); N39.0 Urinary tract infection, site not specified; D72.829 Elevated white blood cell count, unspecified; N04.9 Nephrotic syndrome with unspecified morphologic changes; R10.9 Unspecified abdominal pain; Z87.442 Personal history of urinary calculi; Z72.0 Tobacco use
CPT/HCPCS: 36000; 36415; 74176; 80053; 81001; 81025; 84484; 85025; 87086; 96365; 96374; 96375; 99285; J0696; J1885; J2270

== ENCOUNTER 2024-05-08 02:18 | Emergency (ER) | payer BC ==
[2024-05-08 02:33] VITALS: PULSE 87; RESP 16; TEMP 97.3; O2SAT 98
--- NOTE | 2024-05-08 02:47 | ERPHSYRPT ---
- History of Present Illness Time Seen by Provider: 05/08/24 02:35 Source: patient Exam Limitations: no limitations Patient Subjective Stated Complaint: right flank pain Triage Nursing Assessment: patient recently has kidney stone removal surgery. she had a stent placed for 5 days and took it out today around 2p. she states that 1 hour after removing the stent she began to have increasing sharp right flank pain and it has not gone away with hydrocodone that she was prescribed. Physician History: This is a 28-year-old white female patient of nurse practitioner Caryn who has known right sided ureteral lithiasis that were removed and a ureteral stent was placed 5 days ago. Patient was told to remove the catheter on 05/07/2024 which she did at approximately 2 PM. Patient states initially she felt pretty good. Approximately 1 hour later she has been having increasing pain in the right flank and associated vomiting episodes. Patient was told that if she had increasing pain and vomiting episodes to go to the nearest emergency department. Patient was taking hydrocodone for the pain but this did not seem to help. Patient has a history of recurrent UTIs, kidney stone formation, polycystic ovary syndrome and endometriosis. Patient denies chest pain. Patient denies shortness of breath. Timing/Duration: yesterday Activites at Onset: none Quality: sharpness, stabbing, throbbing Onset Location: right flank Severity of Pain-Max: moderate Severity of Pain-Current: moderate Prior abdominal problems: other (Patient's right ureteral stent was removed on 05/07/2024 at 2 PM) Modifying Factors: Improves With: nothing Associated Symptoms: vomiting Allergies/Adverse Reactions: No Known Drug Allergies Allergy (Verified 05/08/24 02:34) Home Medications: Escitalopram Oxalate 10 mg PO DAILY 05/08/24 [History] Phentermine HCl 37.5 mg PO DAILY 05/08/24 [History] Hx Tetanus, Diphtheria Vaccination/Date Given: No Hx Influenza Vaccination/Date Given: Yes Hx Pneumococcal Vaccination/Date Given: No Travel Risk - International Travel Have you traveled outside of the country in past 3 weeks: No - Emerging Infectious Disease Are you exhibiting symptoms associated with any current EIDs: No Symptoms: Abdominal Pain - Review of Systems Constitutional: No Symptoms Eyes: No Symptoms Ears, Nose, & Throat: No Symptoms Respiratory: No Symptoms Cardiac: No Symptoms Abdominal/Gastrointestinal: Nausea, Vomiting Genitourinary Symptoms: Flank Pain (Right side) Musculoskeletal: No Symptoms Skin: No Symptoms Neurological: No Symptoms Psychological: No Symptoms Endocrine: No Symptoms Hematologic/Lymphatic: No Symptoms Immunological/Allergic: No Symptoms All Other Systems: Reviewed and Negative - Past Medical History Pertinent Past Medical History: Yes Neurological History: No Pertinent History ENT History: No Pertinent History Cardiac History: No Pertinent History Respiratory History: No Pertinent History Endocrine Medical History: No Pertinent History Musculoskeletal History: No Pertinent History, Other GI Medical History: No Pertinent History History: Other Psycho-Social History: Depression Female Reproductive Disorders: Endometriosis, Other Other Medical History: UTI, kidney stones PCOS - Past Surgical History Past Surgical History: Yes Neuro Surgical History: No Pertinent History Cardiac: No Pertinent History Respiratory: No Pertinent History Gastrointestinal: No Pertinent History Genitourinary: Kidney Surgery Musculoskeletal: No Pertinent History Female Surgical History: No Pertinent History Other Surgical History: right ankle screws and plate, TONSILS, kidney stone removal - Female History Hx Last Menstrual Period: 2 DAYS Hx Now: No - Social History Smoking Status: Current every day smoker Exposure to second hand smoke: No Drug Use: none Patient Lives Alone: Yes - Social Determinants of Health Will the patient participate in the screening: Yes Do you worry about a steady place to live?: No In the past 12 months,have you had to go without utilities?: No Transportation Issues: No Has anyone in your support network made you feel unsafe?: No Have you or anyone in your house had to go without enough: No - Nursing Vital Signs Nursing Vital Signs: Initial Vital Signs Temperature 97.3 F 05/08/24 02:22 Pulse Rate 87 05/08/24 02:22 Respiratory Rate 16 05/08/24 02:22 Blood Pressure 157/106 05/08/24 02:22 O2 Sat by Pulse Oximetry 98 05/08/24 02:22 Pain Scale Pain Intensity 7 - Physical Exam General Appearance: moderate distress, alert, anxiety Eye Exam: PERRL/EOMI, eyes nml inspection Ears, Nose, Throat Exam: normal ENT inspection, moist mucous membranes Neck Exam: normal inspection, non-tender, supple, full range of motion Respiratory Exam: airway intact, No chest tenderness, No respiratory distress Gastrointestinal/Abdomen Exam: soft, normal bowel sounds, No tenderness Pelvic Exam: not done Rectal Exam: not done Back Exam: normal inspection, normal range of motion, CVA tenderness (Right side), No vertebral tenderness Extremity Exam: normal inspection, normal range of motion, pelvis stable Neurologic Exam: alert, oriented x 3, cooperative, variety lathe operator II-XII nml as tested, nml cerebellar function, nml station & gait, sensation nml Skin Exam: normal color, warm, dry Lymphatic Exam: No adenopathy SpO2 Interpretation: normal SpO2: 98 O2 Delivery: Room Air - Course Nursing assessment & vital signs reviewed: Yes Ordered Tests: Active Orders 24 hr Category Date Time Status IV Insertion STAT Care 05/08/24 02:46 Active ABDOMEN AND PELVIS W/0 CONTRAS [CT] Stat Exams 05/08/24 02:46 Completed AMYLASE Stat Lab 05/08/24 03:01 Completed CBC W DIFF Stat Lab 05/08/24 03:01 Completed CMP Stat Lab 05/08/24 03:01 Completed CULTURE,URINE Stat Lab 05/08/24 02:53 Received HCG QUALITATIVE, SERUM Stat Lab 05/08/24 03:01 Completed LIPASE Stat Lab 05/08/24 03:01 Completed UA W/RFX UR CULTURE Stat Lab 05/08/24 02:53 Completed Medication Summary Discontinued Medications Generic Name Dose Route Start Last Admin Trade Name Freq PRN Reason Stop Dose Admin Hydromorphone HCl 1 mg 05/08/24 02:46 05/08/24 02:56 Hydromorphone 1 Mg/1ml Inj IV 05/08/24 02:47 1 mg STAT ONE Administration Hydromorphone HCl Confirm 05/08/24 02:51 Hydromorphone 1 Mg/1ml Inj Administered 05/08/24 02:52 Dose 1 mg .ROUTE .STK-MED ONE Sodium Chloride 1,000 mls @ 999 mls/hr 05/08/24 02:46 05/08/24 02:55 Sodium Chloride 0.9% 1000 Ml IV 05/08/24 03:46 999 mls/hr .Q1H1M STA Administration Sodium Chloride Confirm 05/08/24 02:51 Sodium Chloride 0.9% 1000 Ml Administered 05/08/24 02:52 Dose 1,000 mls @ ud .ROUTE .STK-MED ONE Ceftriaxone Sodium 1 gm in 100 mls @ 200 mls/hr 05/08/24 03:30 05/08/24 03:38 Rocephin 1 Gm / 100 Ml Nacl IV 05/08/24 03:59 200 ml/hr STAT ONE 200 mls/hr Administration Ceftriaxone Sodium Confirm 05/08/24 03:37 Rocephin 1 Gm / 100 Ml Nacl Administered 05/08/24 03:38 Dose 1 gm in 100 mls @ ud IV .STK-MED ONE Ketorolac Tromethamine 30 mg 05/08/24 02:46 05/08/24 02:56 Ketorolac Tromethamine 30 Mg/Ml Inj IV 05/08/24 02:47 30 mg STAT ONE Administration Ketorolac Tromethamine Confirm 05/08/24 02:50 Ketorolac Tromethamine 30 Mg/Ml Inj Administered 05/08/24 02:51 Dose 30 mg .ROUTE .STK-MED ONE Ondansetron HCl 4 mg 05/08/24 02:46 05/08/24 02:56 Ondansetron Hcl 4 Mg/2 Ml Vial IV 05/08/24 02:47 4 mg STAT ONE Administration Ondansetron HCl Confirm 05/08/24 02:50 Ondansetron Hcl 4 Mg/2 Ml Vial Administered 05/08/24 02:51 Dose 4 mg .ROUTE .STK-MED ONE Lab/Rad Data: Laboratory Result Diagrams 05/08/24 03:01 05/08/24 03:01 Laboratory Results 05/08/24 05/08/24 05/08/24 Range/Units 03:01 03:01 03:01 WBC 9.9 (3.98-10.04) x10^3/uL RBC 4.54 (3.93-5.22) x10^6/uL Hgb 13.3 (11.2-15.7) g/dL Hct 40.0 (34.1-44.9) % MCV 88.1 (79.4-94.8) fL MCH 29.3 (25.6-32.2) pg MCHC 33.3 (32.2-35.5) g/dL RDW 12.0 (11.7-14.4) % Plt Count 339 (182-369) x10^3/uL MPV 8.9 L (9.4-12.3) fL Gran % 74.5 H (34.0-71.1) % Immature Gran % (Auto) 0.3 (0.001-0.429) % Nucleat RBC Rel Count 0.0 (0.00-0.2) % Eos # (Auto) 0.13 (0.04-0.36) x10^3/uL Immature Gran # (Auto) 0.03 (0.001-0.031) x10^3u/L Absolute Lymphs (auto) 1.71 (1.18-3.74) x10^3/uL Absolute Monos (auto) 0.62 (0.24-0.86) x10^3/uL Absolute Nucleated RBC 0.00 (0.00-0.012) x10^3u/L Lymphocytes % 17.3 L (19.3-51.7) % Monocytes % 6.3 (4.7-12.5) % Eosinophils % 1.3 (0.7-5.8) % Basophils % 0.3 (0.1-1.2) % Absolute Granulocytes 7.36 H (1.56-6.13) x10^3/uL Basophils # 0.03 (0.01-0.08) x10^3/uL Sodium 143 (135-145) mmol/L Potassium 4.3 (3.5-5.1) mmol/L Chloride 109 H (98-107) mmol/L Carbon Dioxide 24 (22-30) mmol/L Anion Gap 14.2 (5-15) MEQ/L BUN 12 (7-17) mg/dL Creatinine 0.84 (0.52-1.04) mg/dL Estimated GFR 96.4 ML/MIN Glucose 109 H (74-106) mg/dL Calcium 9.8 (8.4-10.2) mg/dL Total Bilirubin 0.30 (0.2-1.3) mg/dL AST 25 (14-36) U/L ALT 30 (0-35) U/L Alkaline Phosphatase 54 (38-126) U/L Serum Total Protein 7.8 (6.3-8.2) g/dL Albumin 4.4 (3.5-5.0) g/dL Amylase 59 (30-110) U/L Lipase 26 (23-300) U/L Serum HCG, Qual NEGATIVE (NEGATIVE) Urine Color (Yellow) Urine Appearance (Clear) Urine pH (4.6-8.0) Ur Specific [place] (1.005-1.030) Urine Protein (Negative) Urine Glucose (UA) (Negative) mg/dL Urine Ketones (Negative) Urine Blood (Negative) Urine Nitrite (Negative) Urine Bilirubin (Negative) Urine Urobilinogen (0.2) mg/dL Ur Leukocyte Esterase (Negative) U Hyaline Cast (Auto) (0-2) /LPF Urine Microscopic RBC (0-5) /HPF Urine Microscopic WBC (0-5) /HPF Ur Epithelial Cells (None Seen) /HPF Urine Bacteria (None Seen) /HPF Urine Culture Reflexed (NO) 05/08/24 Range/Units 02:53 WBC (3.98-10.04) x10^3/uL RBC (3.93-5.22) x10^6/uL Hgb (11.2-15.7) g/dL Hct (34.1-44.9) % MCV (79.4-94.8) fL MCH (25.6-32.2) pg MCHC (32.2-35.5) g/dL RDW (11.7-14.4) % Plt Count (182-369) x10^3/uL MPV (9.4-12.3) fL Gran % (34.0-71.1) % Immature Gran % (Auto) (0.001-0.429) % Nucleat RBC Rel Count (0.00-0.2) % Eos # (Auto) (0.04-0.36) x10^3/uL Immature Gran # (Auto) (0.001-0.031) x10^3u/L Absolute Lymphs (auto) (1.18-3.74) x10^3/uL Absolute Monos (auto) (0.24-0.86) x10^3/uL Absolute Nucleated RBC (0.00-0.012) x10^3u/L Lymphocytes % (19.3-51.7) % Monocytes % (4.7-12.5) % Eosinophils % (0.7-5.8) % Basophils % (0.1-1.2) % Absolute Granulocytes (1.56-6.13) x10^3/uL Basophils # (0.01-0.08) x10^3/uL Sodium (135-145) mmol/L Potassium (3.5-5.1) mmol/L Chloride (98-107) mmol/L Carbon Dioxide (22-30) mmol/L Anion Gap (5-15) MEQ/L BUN (7-17) mg/dL Creatinine (0.52-1.04) mg/dL Estimated GFR ML/MIN Glucose (74-106) mg/dL Calcium (8.4-10.2) mg/dL Total Bilirubin (0.2-1.3) mg/dL AST (14-36) U/L ALT (0-35) U/L Alkaline Phosphatase (38-126) U/L Serum Total Protein (6.3-8.2) g/dL Albumin (3.5-5.0) g/dL Amylase (30-110) U/L Lipase (23-300) U/L Serum HCG, Qual (NEGATIVE) Urine Color Dark Yellow A (Yellow) Urine Appearance Cloudy A (Clear) Urine pH 5.5 (4.6-8.0) Ur Specific [place] 1.020 (1.005-1.030) Urine Protein 100 A (Negative) Urine Glucose (UA) Negative (Negative) mg/dL Urine Ketones Negative (Negative) Urine Blood Large A (Negative) Urine Nitrite Positive A (Negative) Urine Bilirubin Negative (Negative) Urine Urobilinogen 1.0 A (0.2) mg/dL Ur Leukocyte Esterase Small A (Negative) U Hyaline Cast (Auto) NONE SEEN (0-2) /LPF Urine Microscopic RBC >100 A (0-5) /HPF Urine Microscopic WBC 21-50 A (0-5) /HPF Ur Epithelial Cells Rare (None Seen) /HPF Urine Bacteria None Seen (None Seen) /HPF Urine Culture Reflexed YES (NO) - Progress Progress: improved Air Movement: good Progress Note: 05/08/24 03:08 My medical decision making and the assignment of moderate complexity to this patient's medical issue today is based on review of the patient's past medical history, review the patient's medication list, review of patient drug allergy list, history present illness and physical findings on examination. The workup includes placement of intravenous line, infusion of normal saline solution, infusion of Toradol, infusion of Dilaudid, infusion of Zofran, CBC, CMP, amylase, lipase, urinalysis, hCG level, CT scan of the abdomen pelvis without contrast. Differential diagnosis includes but is not limited to retained ureteral calculus, pyelonephritis, pancreatitis, UTI 05/08/24 03:41 I interpreted the patient's laboratory data results. Based on the laboratory data results, the patient has a urinary tract infection we will start intravenous antibiotics on her. 05/08/24 04:[address] scan of the abdomen pelvis without contrast was interpreted by the radiologist and I reviewed reviewed the impression. Impression states mild to moderate dilatation of the right pelvic calyceal system with faint hyperdense streaks with dilatation of the proximal to third of right ureter until the d istal part where it shows mild diffuse mural thickening within. Minimal luminal narrowing associated with stranding of the surrounding fat planes. Could be changes secondary to post stent removal Blood Culture(s) Obtained: Yes Antibiotics given: Yes Counseled pt/family regarding: lab results, diagnosis, need for follow-up, rad results Medical Desision Making - Independent Historian Additional History obtained from: Family - Diagnostic Testing Diagnostic test were ordered, analyzed, and reviewed by me: Yes Radiological Interpretation: Reviewed by me, Teleradiologist Report - Risk of complications The pt has a mod risk of morbidity or mortality based on: Need for prescription drug management - Departure Departure Disposition: Home Clinical Impression: Postoperative pain Condition: Stable Critical Care Time: No Referrals: SANA GALVIN NP [Primary Care Provider] - Follow up/PCP as directed Additional Instructions: Drink plenty of fluids. Alternate your hydrocodone pain medicine and ibuprofen medication as discussed. Take your antibiotics as discussed. Call your urologist office later today, 05/08/2024, to make them aware that you were here this morning and to make arrangements for an earlier follow-up appointment. Prescriptions: Ciprofloxacin [Cipro 500 MG] 500 mg PO BID #14 tablet
[2024-05-08] MEDS ORDERED: Zofran 4 MG/2 ML VIAL ONE (02:50)
[2024-05-08] MEDS ORDERED: TORAdol 30 mg Injection ONE (02:50)
[2024-05-08] MEDS ORDERED: Hydromorphone 1 mg/ml Injection ONE ×2 (02:51→05:06)
[2024-05-08] MEDS ORDERED: Sodium Chloride 0.9% 1000 ML 1,000 ML ONE (02:51)
[2024-05-08] MEDS: Sodium Chloride 0.9% 1000 ML 1,000 ML IV STA (02:55)
[2024-05-08] MEDS: Zofran 4 MG/2 ML VIAL IV ONE (02:56)
[2024-05-08] MEDS: TORAdol 30 mg Injection IV ONE (02:56)
[2024-05-08] MEDS: Hydromorphone 1 mg/ml Injection IV ONE ×2 (02:56→05:06)
[2024-05-08 03:02] LABS: Appearance Cloudy (Clear); Bacteria None Seen /HPF (None Seen); Bilirubin Negative (Negative); Blood Large (Negative); Epithelial Cells Rare /HPF (None Seen); Glucose, Urine Negative (Negative); Hyaline Casts NONE SEEN /LPF (0-2); Ketones Negative (Negative); Leukocyte Esterase Small (Negative); Nitrite Positive (Negative); Ph 5.5 (4.6-8.0); Protein,Urine Dip 100 (Negative); RBC >100 /HPF (0-5); WBC 21-50 /HPF (0-5)
[2024-05-08 03:04] LABS: ADD URINE CULTURE? YES (NO)
[2024-05-08 03:04] LABS: Absolute Neutrophil Ct (ANC) 7.36 x10^3/uL (1.56-6.13); BASOPHIL % 0.3 % (0.1-1.2); Basophil (Absolute #) 0.03 x10^3/uL (0.01-0.08); Eosinophil % 1.3 % (0.7-5.8); Eosinophil (Absolute #) 0.13 x10^3/uL (0.04-0.36); Hemoglobin 13.3 g/dL (11.2-15.7); IMMATURE GRAN # 0.03 x10^3u/L (0.001-0.031); IMMATURE GRAN % 0.3 % (0.001-0.429); Lymphocyte (Absolute #) 1.71 x10^3/uL (1.18-3.74); Lymphocytes % 17.3 % (19.3-51.7); Mean Cell Volume 88.1 fL (79.4-94.8); Mean Corpuscular Hemoglobin 29.3 pg (25.6-32.2); Mean Corpuscular Hgb Concent. 33.3 g/dL (32.2-35.5); Mean Platelet Volume 8.9 fL (9.4-12.3); Monocyte (Absolute #) 0.62 x10^3/uL (0.24-0.86); Monocytes % 6.3 % (4.7-12.5); Neutrophil % 74.5 % (34.0-71.1); Platelet Count 339 x10^3/uL (182-369); Red Blood Count 4.54 x10^6/uL (3.93-5.22); White Blood Count 9.9 x10^3/uL (3.98-10.04)
[2024-05-08 03:16] LABS: ALBUMIN 4.4 g/dL (3.5-5.0); ANION GAP 14.2 MEQ/L (5-15); BILIRUBIN,TOTAL 0.3 mg/dL (0.2-1.3); Calcium 9.8 mg/dL (8.4-10.2); Creatinine 1 0.84 mg/dL (0.52-1.04); EST GLOMERULAR FILTRATION RATE 96.4 ML/MIN; HCG SERUM TEST NEGATIVE (NEGATIVE); Potassium 4.3 mmol/L (3.5-5.1); Total Protein 7.8 g/dL (6.3-8.2)
[2024-05-08] MEDS ORDERED: ROCEPHIN 1 GM / 100 ML NaCl 1 GM/100 ML IVPB IV ONE (03:37)
[2024-05-08] MEDS: ROCEPHIN 1 GM / 100 ML NaCl 1 GM/100 ML IVPB IV ONE (03:38)
[2024-05-08 04:02] VITALS: BP 108/59
--- NOTE | 2024-05-08 04:52 | XRAY ---
CLINICAL HISTORY: Pain s/p R ureteral cath removal COMPARISON: 05/02/2024 TECHNIQUE: CT of the abdomen and pelvis was performed with axial images as well as sagittal and coronal reconstruction images without intravenous contrast. DLP 1259.35 mGy*cm. One of the following dose reduction techniques were utilized for this exam: Automated exposure control, adjustment of the mA and/or kV according to patient size, and use of iterative reconstruction. FINDINGS: Abdomen: Currently noted mild to moderate dilatation of the right pelvi-calyceal system showing faint internal hyperdense streaks ( ? minimal hemorrhage) with dilatation of the proximal 2/3 of the right ureter till it distal part where its shows mild diffuse mural thickening within minimal luminal narrowing associated with stranding of the surrounding fat planes. Average calibre of the rest of the distal pelvic ureter is noted. Unchanged left renal middle calyceal stone measuring 5 mm with mean attenuation value of 594 HU. No significant backpressure changes. Average sized liver. No focal or diffuse parenchymal abnormality. The intrahepatic biliary radicals and the bile ducts are normal. The pancreas and adrenal glands are unremarkable. Multiple scattered splenic calcifications are seen; likely post-granulomatous. Related small splenule is seen. The gallbladder is normal. No pericholecystic collection or radio dense calculi in the gall bladder. The ascending colon, the transverse colon, the descending colon, visualized small bowel loops are unremarkable. There is no evidence of significant enlargement of the mesenteric or retroperitoneal lymph nodes. Still noted right lower lung lobe few calcified pulmonary nodules, largest measures about 9 mm; likely post granulomatous. Pelvis: The urinary bladder is unremarkable. The rectosigmoid colon is unremarkable. The pelvic organs are unremarkable. Mild stranding of the deep pelvic fat planes. No evidence of pelvic lymphadenopathy. The osseous structures in the pelvis, lower rib cage and lumbar spine show no abnormality. No lytic or sclerotic bone lesions. IMPRESSION: 1. Currently noted mild to moderate dilatation of the right pelvi-calyceal system showing faint internal hyperdense streaks ( ? minimal hemorrhage) with dilatation of the proximal 2/3 of the right ureter till it distal part where its shows mild diffuse mural thickening within minimal luminal narrowing associated with stranding of the surrounding fat planes; could be post stent removal changes. Clinical correlation and follow up are recommended. 2. Unchanged left renal middle calyceal stone. No significant backpressure changes. [facility] was called at [phone] at 3:47 AM TRANSITION MANAGER, 05/08/2024 and Zak Noe was informed regarding medical findings. Electronically Signed by: Sera Keene MD. (05/08/2024 04:49:15 EDT)
== END 2024-05-08 05:19 | disposition home or self-care (01) ==
LOC: ED 02:18
DX: G89.18 Other acute postprocedural pain (principal); R10.9 Unspecified abdominal pain; R11.2 Nausea with vomiting, unspecified; Z79.899 Other long term (current) drug therapy; Z72.0 Tobacco use
CPT/HCPCS: 36000; 36415; 74176; 80053; 81001; 82150; 83690; 84703; 85025; 87086; 96374; 96375; 99284; J0696; J1170; J1885; J2405